=== PATIENT | male | born 1985 | race Asian ===

== ENCOUNTER 2020-11-18 10:36 | Emergency (ER) | payer OTHER ==
[~2020-11-18] VITALS: Ht 167.6 cm; Wt 78.2 kg
[2020-11-18 10:57] VITALS: BP 116/73
== END 2020-11-18 11:41 | disposition home or self-care (01) ==
LOC: EMS 10:50
DX: S63.616A Unspecified sprain of right little finger, initial encounter (principal); W19.XXXA Unspecified fall, initial encounter; Y93.89 Activity, other specified; Y92.89 Other specified places as the place of occurrence of the external cause; Y99.8 Other external cause status
CPT/HCPCS: 99283